=== PATIENT | male | born 1995 | race Caucasian/White ===

== ENCOUNTER 2017-12-17 16:10 | Emergency (ER) | payer SELFPAY ==
--- NOTE | 2017-12-17 16:15 | ED Physician Documentation ---
General Adult - HISTORIAN Historian: patient - HPI Stated Complaint: near syncope Chief Complaint: General Adult Onset: minutes Timing: still present Severity: moderate Further Comments: yes (Pt is a 22 yo male who appeared to nearly pass out at his job at [employer]. Pt has had sinus congestion/pain for several days. Pt had sustained a small cut to his finger prior to this episode. Co-workers reported to EMT's that pt has appeared anxious to them in the past. Pt had mild nausea.) - ROS CONST: other (lightheadedness) EYES/ENT: nasal drainage, nasal congestion, other (sinus pressure) CVS/RESP: cough GI/: nausea MS/SKIN/LYMPH: none NEURO/PSYCH: dizziness - PAST HX Past History: none Allergies/Adverse Reactions: Allergies Allergy/AdvReac Type Severity Reaction Status Date / Time Sulfa (Sulfonamide Allergy Verified 12/17/17 17:01 Antibiotics) Home Medications: Ambulatory Orders Medication Instructions Recorded Amoxicillin [Trimox] 500 mg PO TID #30 capsule 12/17/17 - SOCIAL HX Smoking History: cigarettes - FAMILY HX Family History: No - REVIEWED ASSESSMENTS Nursing Assessment Reviewed: Yes Vitals Reviewed: Yes Progress - Progress Progress: 1 L IVF in ER. Zofran 4 mg IV Rx Amoxicillin 500 mg. Take one tablet by mouth every 8 hrs for 10 days. ED Results Lab/Radiology - Orders Orders: ED Orders Category Date Time Status Place IV Lock 1T Care 12/17/17 16:11 Active CBC/PLATELET/DIFF Routine Lab 12/17/17 Ordered CMP Routine Lab 12/17/17 Ordered Rapid Strep [GRP A STREP SCREEN] Stat Lab 12/17/17 Ordered 0.9 % Sodium Chloride [Normal Saline] 1,000 ml Med 12/17/17 16:12 Active IV Q1H Ondansetron HCl/Pf [Zofran 4 mg/2 ml] Med 12/17/17 16:12 Discontinued 4 mg IVP NOW ONE General Adult Physical Exam - PHYSICAL EXAM GENERAL APPEARANCE: mild distress (anxiety) EENT: pharynx normal, TM's nml, other (sinus tenderness) NECK: normal inspection, supple RESPIRATORY: no resp distress, chest non-tender, breath sounds normal, other ( cough) CVS: reg rate & rhythm, heart sounds normal, no murmur ABDOMEN: soft, no organomegaly, normal bowel sounds BACK: normal inspection, no CVA tenderness SKIN: warm/dry, normal color EXTREMITIES: non-tender, normal range of motion, no evidence of injury NEURO: oriented X3, motor nml, sensation nml, other (anxious) Discharge Clincal Impression: Sinusitis Qualifiers: Sinusitis location: unspecified location Chronicity: unspecified Qualified Code (s): J32.9 - Chronic sinusitis, unspecified Prescriptions: Amoxicillin [Trimox] 500 mg PO TID #30 capsule Referrals: Primary Doctor,No [Primary Care Provider] - Condition: Good Disposition: 01 HOME, SELF-CARE Decision to Admit: NO Decision Time: 17:49
[2017-12-17 16:43] LABS: MEAN CORPUSCULAR HEMOGLOBIN 31.6 pg (28.0-34.0); MEAN CORPUSCULAR VOLUME 91.1 fl (80.0-100.0)
[2017-12-17 16:56] LABS: eGFR (African) > 60; eGFR (Non-African) > 60
[2017-12-17] MEDS: ONDANSETRON HCL/PF 4 MG/ 2ML VIAL IVP ONE (16:59)
[2017-12-17] MEDS: 0.9 % SODIUM CHLORIDE 1,000 ML IV ONE (16:59)
[2017-12-17 17:12] LABS: SEGMENTED NEUTROPHILS % 87 % (39-79)
[2017-12-17 17:13] LABS: EOSINOPHILS % 1 % (0-7); MONOCYTES % 5 % (0-11)
[2017-12-17 18:03] VITALS: BP 119/68
== END 2017-12-17 18:00 | disposition home or self-care (01) ==
LOC: ED 16:10
DX: J32.9 Chronic sinusitis, unspecified (principal)
CPT/HCPCS: 80053; 85025; 87880; 96365; 99283; J2405; J7030; S1016

== ENCOUNTER 2018-01-20 19:41 | Emergency (ER) | payer SELFPAY ==
--- NOTE | 2018-01-20 20:04 | ED Physician Documentation ---
General Adult - HISTORIAN Historian: patient - HPI Stated Complaint: Dizzy, syncopal episode Chief Complaint: General Adult Onset: hours Timing: better Severity: moderate Further Comments: yes (Pt is a 22 yo male with a near-syncopal episode earlier tonight. Pt has been having these episodes intermittently and has been seen here in the past with a similar presentation. Pt says that he sometimes deliberately gets up slowly so that he won't get dizzy. He says he can feel an episode coming on. Pt sometimes gets blurry vision with these episodes. Pt says that he may have briefly had a fast heart rate.) - ROS CONST: other (lightheaded) EYES/ENT: none CVS/RESP: none GI/: none MS/SKIN/LYMPH: none NEURO/PSYCH: dizziness - PAST HX Past History: none Allergies/Adverse Reactions: Allergies Allergy/AdvReac Type Severity Reaction Status Date / Time Sulfa (Sulfonamide Allergy Mild Rash Verified 01/20/18 19:51 Antibiotics) Home Medications: Ambulatory Orders Medication Instructions Recorded Ascorbic Acid [Vitamin C] 500 mg PO DAILY 01/20/18 Ibuprofen [Advil] 200 mg PO Q6H PRN 01/20/18 Multivitamin [Daily Multiple 1 each PO DAILY 01/20/18 Vitamin] - SOCIAL HX Smoking History: cigarettes Drug Use: marijuana - FAMILY HX Family History: Yes (Mother with hx hypoglycemia in youth, now with DM.) - VITAL SIGNS Vital Signs: Vital Signs Temp Pulse Resp BP Pulse Ox 97.4 F L 86 18 111/66 98 01/20/18 19:41 01/20/18 19:41 01/20/18 19:41 01/20/18 19:41 01/20/18 19:41 - REVIEWED ASSESSMENTS Nursing Assessment Reviewed: Yes Vitals Reviewed: Yes Progress - Progress Progress: NS 1 L IVF Glucose = 67 Pt given orange juice in ER, will eat at home. Pt with family hx hypoglycemia and with intermittent episodes of lightheadedness /blurry vision, may have hypoglycemia. Pt advised to establish with local doctor for further testing to establish formal hypoglycemia diagnosis. Pt advised to eat small frequent meals and given handout on hypoglycemia. General Adult Physical Exam - PHYSICAL EXAM GENERAL APPEARANCE: mild distress EENT: eye inspection normal, pharynx normal NECK: normal inspection, supple RESPIRATORY: no resp distress, chest non-tender, breath sounds normal CVS: reg rate & rhythm, heart sounds normal, equal pulses ABDOMEN: soft, no organomegaly, normal bowel sounds BACK: normal inspection, no CVA tenderness SKIN: warm/dry, normal color EXTREMITIES: non-tender, normal range of motion, no evidence of injury NEURO: oriented X3, CN's nml as tested, motor nml, sensation nml Discharge Clincal Impression: Near syncope, Possible hypoglycemia Referrals: Primary Doctor,No [Primary Care Provider] - Condition: Stable Disposition: 01 HOME, SELF-CARE Decision to Admit: NO Decision Time: 21:54
[2018-01-20 20:42] LABS: BASOPHILS % 0.6 (0.0-1.5); EOSINOPHILS % 6.5 % (0.0-6.8); MEAN CORPUSCULAR HEMOGLOBIN 32.1 pg (28.0-34.0); MEAN CORPUSCULAR VOLUME 91.4 fl (80.0-100.0); NEUTROPHILS # 2.9 # k/uL (1.4-7.7)
[2018-01-20] MEDS: 0.9 % SODIUM CHLORIDE 1,000 ML IV ONE (21:02)
[2018-01-20 21:24] LABS: eGFR (African) > 60; eGFR (Non-African) > 60
[2018-01-20 22:12] VITALS: BP 112/74
== END 2018-01-20 22:10 | disposition home or self-care (01) ==
LOC: ED 19:41
DX: R55 Syncope and collapse (principal)
CPT/HCPCS: 80053; 85025; 93005; 96365; 99283; J7030; S1016

== ENCOUNTER 2019-01-25 21:58 | Observation (INO) | payer SELFPAY ==
--- NOTE | 2019-01-25 22:15 | ED Physician Documentation ---
General Adult - HISTORIAN Historian: patient - HPI Stated Complaint: cough, high fever Chief Complaint: General Adult Onset: days ago (7) Timing: still present Severity: moderate Further Comments: yes (Pt is a 23 yo male with fever and cough at home. Pt coughed a small amount of blood at work. He had been coughing vigorously prior to this. Pt has been ill for about a week.) - ROS CONST: sweating, weakness, chills EYES/ENT: sore throat CVS/RESP: shortness of breath, cough GI/: none MS/SKIN/LYMPH: none - PAST HX Past History: none Allergies/Adverse Reactions: Allergies Allergy/AdvReac Type Severity Reaction Status Date / Time Sulfa (Sulfonamide Allergy Mild Rash Verified 01/25/19 22:46 Antibiotics) Home Medications: Ambulatory Orders Medication Instructions Recorded NK 01/25/19 - SOCIAL HX Smoking History: cigarettes - FAMILY HX Family History: No - VITAL SIGNS Vital Signs: Vital Signs Temp Pulse Resp BP Pulse Ox 112/74 01/20/18 22:10 - REVIEWED ASSESSMENTS Nursing Assessment Reviewed: Yes Vitals Reviewed: Yes Progress - Progress Progress: Influenza A & B - neg Rapid Strep - pos Toradol 30 mg IV Keflex 500 mg po CXR: History: Cough, fever, left chest pain Findings: Basal left lower lobe pneumonia is present without parapneumonic effusion. The right lung is clear. Heart size and pulmonary vascularity are normal. Impression: Basal left lower lobe pneumonia. NS 1.5 L IVF, then 100 ml/hr Zofran 4 mg IV Rocephin 1 gm IV Admit to Dr. Mercado General Adult Physical Exam - PHYSICAL EXAM GENERAL APPEARANCE: moderate distress EENT: pharyngeal erythema NECK: normal inspection, supple RESPIRATORY: other (coarse breath sounds) CVS: tachycardia ABDOMEN: soft, no organomegaly, normal bowel sounds BACK: normal inspection, no CVA tenderness SKIN: warm/dry, pallor EXTREMITIES: non-tender, normal range of motion, no evidence of injury, no edema NEURO: oriented X3, motor nml, sensation nml Discharge Clincal Impression: Strep throat Pneumonia Qualifiers: Pneumonia type: due to unspecified organism Laterality: left Lung location: lower lobe of lung Qualified Code(s): J18.1 - Lobar pneumonia, unspecified organism Referrals: Primary Doctor,No [Primary Care Provider] - Condition: Stable Disposition: ADMITTED INPATIENT Decision to Admit: NO Decision Time: 01:05
[2019-01-25] MEDS ORDERED: 0.9 % SODIUM CHLORIDE 1,000 ML IV ONE (22:16)
[2019-01-25] MEDS ORDERED: KETOROLAC TROMETHAMINE 30 MG/1ML VIAL IV ONE (22:16)
[2019-01-25 22:56] LABS: BASOPHILS % 0.5 (0.0-1.5); EOSINOPHILS % 1.3 % (0.0-6.8); MEAN CORPUSCULAR HEMOGLOBIN 30.8 pg (28.0-34.0); MONOCYTES % 3.7 % (0.0-11.0)
[2019-01-25] MEDS ORDERED: CEPHALEXIN 250 MG CAPSULE PO ONE (23:17)
[2019-01-26] MEDS ORDERED: cefTRIAXone SODIUM 1 GM/50 ML INJ IV ONE (00:15)
[2019-01-26] MEDS ORDERED: 0.9 % SODIUM CHLORIDE(MINIBAG+ 50 ML IV ONE (00:23)
[2019-01-26] MEDS ORDERED: cefTRIAXone SODIUM 1 GM INJ ONE (00:24)
[2019-01-26] MEDS ORDERED: ONDANSETRON HCL/PF 4 MG/ 2ML VIAL IVP ONE (00:34)
[2019-01-26] MEDS ORDERED: 0.9 % SODIUM CHLORIDE 1,000 ML IV ONE (00:50)
[2019-01-26] MEDS ORDERED: ACETAMINOPHEN 325 MG TABLET PO PRN (01:13)
[2019-01-26] MEDS ORDERED: AZITHROMYCIN 500 MG in 0.9 % SODIUM CHLORIDE 250 ML IV SCH (01:37)
[2019-01-26] MEDS ORDERED: 0.9 % SODIUM CHLORIDE 1,000 ML IV SCH (01:37)
[2019-01-26] MEDS ORDERED: AZITHROMYCIN 500 MG VIAL IV ONE (01:42)
[2019-01-26] MEDS ORDERED: 0.9 % SODIUM CHLORIDE 250 ML IV ONE (01:42)
[2019-01-26 02:18] VITALS: BMI 30.4
[2019-01-26 06:16] LABS: BASOPHILS % 0.8 (0.0-1.5); EOSINOPHILS % 0.9 % (0.0-6.8); MONOCYTES % 7.5 % (0.0-11.0)
[2019-01-26 06:17] LABS: NEUTROPHILS # 12.7 # k/uL (1.4-7.7)
--- NOTE | 2019-01-26 06:37 | Diagnostic Imaging Report ---
TOBY RAMIREZ [facility] [address] [facility] [address] [address] Report Submission Date: Jan 25, 2019 11:30:30 PM [facility] Patient Study Name: RAFAEL CLARK Date: Jan 25, 2019 10:45:00 PM [facility] Modality Type: DX Gender: M Description: CHEST 2VIEW : 89 Institution: [facility] Physician: TOBY RAMIREZ Chest two views History: Cough, fever, left chest pain Findings: Basal left lower lobe pneumonia is present without parapneumonic effusion. The right lung is clear. Heart size and pulmonary vascularity are normal. Impression: Basal left lower lobe pneumonia. Electronically signed on Jan 25, 2019 11:30:30 PM [employer]ATION HAND by: Damon ROSA
--- NOTE | 2019-01-26 07:58 | History and Physical Report ---
History of Present Illnes - History of Present Illness Reason for Visit: Cough History of Present Illness: Patient reports he started feeling bad last week with mild cough. Yesterday he went to work and felt fine but within an hour he had a fever, chills, worse cough, ST, and body aches. In the ER he was diagnosed with strep and LLL pneumonia. Admitted per ER physician. - Past Surgical History Past Surgical History: Other (PE tubes) - Past Family History Father Family History: Other (MRSA) - Past Social History Smoke: No Alcohol: None Drugs: None Lives: Alone - Health Maintenance Health Maintenance: denies: Cholesterol Influenza Vaccine: No Pneumonia Vaccine: No Resuscitation Status: Resusciation Status Resuscitation Status Full Code Review of Systems - Review of Systems Constitutional: Fever, Chills, Sweats, Weakness Eyes: negative: pain ENT: Throat Pain. negative: Ear Pain Respiratory: Cough. negative: Shortness of Breath Cardiovascular: negative: Chest Pain Gastrointestinal: Nausea. negative: Vomiting, Abdominal Pain Genitourinary: negative: Dysuria Musculoskeletal: Other ("hurt all over") Skin: negative: Rash Neurological: Weakness - Medications/Allergies Allergies/Adverse Reactions: Allergies Allergy/AdvReac Type Severity Reaction Status Date / Time Sulfa (Sulfonamide Allergy Mild Rash Verified 01/25/19 22:46 Antibiotics) Home Medications: Home Medications NK 01/25/19 Current Inpatient Medications: Current Inpatient Medications Acetaminophen (Tylenol) 650 mg PO Q6 PRN PRN Reason: Fever >101 Stop: 02/01/19 23:59 Last Admin: 01/26/19 05:57 Dose: 650 mg Ceftriaxone Sodium (Rocephin) 1 gm IV DAILY [facility] Stop: 02/01/19 23:59 Azithromycin 500 mg/ Sodium (Chloride) 250 mls @ 125 mls/hr IV Q24H [facility] Stop: 02/05/19 01:36 Last Admin: 01/26/19 01:49 Dose: 125 mls/hr Sodium Chloride (Normal Saline) 1,000 mls @ 100 mls/hr IV Q10H [facility] Last Admin: 01/26/19 03:58 Dose: 100 mls/hr Oseltamivir Phosphate (Tamiflu) 75 mg PO BID [facility] Exam - Exam Vital Signs: Vital Signs (72 hours) 01/25/19 01/26/19 01/26/19 21:58 01:24 01:43 Temperature 99.9 F H 98.2 F 98.2 F Pulse Rate [ 131 H 115 H 115 H Pulse ox] Respiratory 22 20 20 Rate Blood Pressure 122/68 122/68 [Left Arm] Blood Pressure 137/64 [Right Arm] O2 Sat by Pulse 94 99 99 Oximetry 01/26/19 01/26/19 05:49 05:58 Temperature 100.8 F H Pulse Rate [ 96 H Pulse ox] Respiratory 16 16 Rate Blood Pressure 106/47 [Left Arm] Blood Pressure [Right Arm] O2 Sat by Pulse 96 Oximetry General: Alert, Oriented to Person, Oriented to Place, Oriented to Time, Cooperative, No acute distress HEENT: Atraumatic, PERRLA, EOMI, Mouth Mucous membr. moist/[place], Nose Mucous membr. moist/[place] Neck: Normal Range of Motion Lungs: Rhonchi Cardiovascular: Regular rate Abdomen: Normal bowel sounds, Soft, No tenderness Integumentary: Normal Extremities: No edema Neurological: Normal gait, Normal speech, Strength Equal Bilat, Normal tone, Sensation intact, Cranial nerves 3-12 NL, Reflexes 2+ Psych/Mental Status: Mental status NL, Mood NL, Appropriate Affect, Intact Judgment - Laboratory Results Laboratory Results: Laboratory Results 01/25/19 01/26/19 22:20 06:00 WBC 10.60 15.70 H RBC 4.99 4.47 Hgb 15.4 13.9 Hct 46.5 41.4 MCV 93.0 93.0 MCH 30.8 31.0 MCHC 33.0 33.5 RDW 13.4 14.0 Plt Count 342 302 Neut % (Auto) 84.8 H 81.4 H Lymph % (Auto) 9.7 L 9.4 L [place] % (Auto) 3.7 7.5 Eos % (Auto) 1.3 0.9 Baso % (Auto) 0.5 0.8 Neut # (Auto) 9.0 H 12.7 H Lymph # (Auto) 1.0 1.5 [place] # (Auto) 0.4 1.2 H Eos # (Auto) 0.1 0.1 Baso # (Auto) 0.1 0.1 Assessment/Plan - Assessment/Plan (1) Influenza-like illness Status: Acute Current Visit: Yes Plan: Suspect patient has influenza despite flu test negative. Will start tamiflu. Droplet precautions. (2) Pneumonia Status: Acute Current Visit: Yes Qualifiers: Pneumonia type: due to unspecified organism Laterality: left Lung location: lower lobe of lung Qualified Code(s): J18.1 - Lobar pneumonia, unspecified organism Plan: Patient started on rocephin and zithromax by ER staff. Watch. I suspect we can send him home later today if he remains off O2 and afebrile. (3) Strep throat Status: Acute Current Visit: Yes Plan: Being treated. VTE Assessment - RISK FACTOR SCORE VTE RISK FACTOR SCORES: ACUTE INFECTION OTHER THEN SEPSIS - RISK VTE LOW RISK: SCORE OF 1 OR LESS (RISK PROXIMAL DVT 0.4%) NO PROPHYLAXIS NEEDED
[2019-01-26] MEDS: OSELTAMIVIR PHOSPHATE 75 MG CAPSULE PO SCH ×2 (08:00→18:46)
[2019-01-26] MEDS ORDERED: cefTRIAXone SODIUM 1 GM/50 ML INJ IV SCH (09:00)
[2019-01-26 11:50] LABS: eGFR (Non-African) > 60
--- NOTE | 2019-01-26 16:50 | Discharge Summary ---
Discharge Summary - Discharge Sumary History of Present Illness: Patient reports he started feeling bad last week with mild cough. Yesterday he went to work and felt fine but within an hour he had a fever, chills, worse cough, ST, and body aches. In the ER he was diagnosed with strep and LLL pneumonia. Admitted per ER physician. Condition at Discharge: Stable Home Medications: Ambulatory Orders Medication Instructions Recorded Levofloxacin [Levaquin] 500 mg PO DAILY #9 tablet 01/26/19 Oseltamivir Phosphate [Tamiflu] 75 mg PO BID #10 capsule 01/26/19 Consultations this Visit: None Allergies/Adverse Reactions: Allergies Allergy/AdvReac Type Severity Reaction Status Date / Time Sulfa (Sulfonamide Allergy Mild Rash Verified 01/25/19 22:46 Antibiotics) Patient Problems: Current Active Problems Problem Status Onset Influenza-like illness Acute Pneumonia Acute Strep throat Acute Discharge Summary: Patient did well during his stay. He remained afebrile and had no O2 requirement. Received IVF all day. [place] much better by evening and was able to tolerate food. Discharged home in stable condition. Hospital Course: Discharge Dx - Pneumonia. STrep throat. Influenza like illness. Dispositio - home
[2019-01-26 18:12] VITALS: BP 112/73
== END 2019-01-26 19:18 | disposition home or self-care (01) ==
LOC: ED 21:58 → INTOOBSV 01-26 01:15 → SOUTH 01-26 01:15
PROVIDERS: ADMIT Family Medicine; ATTEND Family Medicine
DX: J18.1 Lobar pneumonia, unspecified organism (principal); J11.1 Influenza due to unidentified influenza virus with other respiratory manifestations
CPT/HCPCS: 71046; 80053; 85025; 87040; 87400; 87880; 96374; 96375; 99283; G0378; J0456; J0696; J1885; J2405; J7030; J7050; 99234; S1016

== ENCOUNTER 2019-07-26 17:26 | Emergency (ER) | payer SELFPAY ==
--- NOTE | 2019-07-26 17:54 | ED Physician Documentation ---
Sore Throat/Dental Pain - HISTORIAN Historian: patient - HPI Stated Complaint: sore throat, RUIZ Chief Complaint: Sore Throat Additional Information: Patient is a 23 year old male who presents to the ER with c/o headache and sore throat that started 3 days ago; has not taken anything for his symptoms. Denies any fever or chills. Onset: days ago Context: Possible Infection Associated Symptoms: sore throat. denies: fever, chills - ROS CONST: no problems CVS/RESP: none GI/: nausea. denies: vomiting MS/SKIN/LYMPH: denies: muscle aches NEURO/PSYCH: headache - PAST HX Past History: none Other History: none Immunizations: UTD Allergies/Adverse Reactions: Allergies Allergy/AdvReac Type Severity Reaction Status Date / Time Sulfa (Sulfonamide Allergy Mild Rash Verified 01/25/19 22:46 Antibiotics) Home Medications: Ambulatory Orders Medication Instructions Recorded Ondansetron HCl Rapdis [Zofran Odt] 4 mg PO Q8 PRN #8 tab 07/26/19 - SOCIAL HX Smoking History: greater than 1 pack/day Alcohol Use: occasionally Drug Use: marijuana - FAMILY HX Family History: Yes - VITAL SIGNS Vital Signs: Vital Signs Temp Pulse Resp BP Pulse Ox 98.0 F 87 18 122/71 98 07/26/19 17:26 07/26/19 17:26 07/26/19 17:26 07/26/19 17:26 07/26/19 17:26 - REVIEWED ASSESSMENTS Nursing Assessment Reviewed: Yes ED Results Lab/Radiology - Orders Orders: ED Orders Category Date Time Status Rapid Strep [GRP A STREP SCREEN] Stat Lab 07/26/19 Ordered Sore throat Physical Exam - EXAM General Appearance: no acute distress, alert Head/Neck: head nml inspection, trachea midline, no lymphadenopathy, neck nml inspection Eyes: eyes nml inspection, PERRL Mouth/Throat: lips nml, gums nml, pharynx nml, voice nml, pharyngeal erythema Ear/Nose: nml inspection Respiratory: breath sounds nml CVS: heart sounds nml Abdomen: normal bowel sounds Extremities: non-tender Skin: warm/dry, normal color Neuro/Psych: oriented x3, mood/affect nml Discharge Clincal Impression: Sore throat (viral) Referrals: Primary Doctor,No [Primary Care Provider] - 2 Days Additional Instructions: Increase fluid intake (especially water) Hot tea with 1 tsp of honey will help thin secretions Warm salt water gargles 4 times a day Alternate Tylenol and Ibuprofen for 24 hours Start taking Zyrtec daily Follow up with PCP in one week for re-evaluation Condition: Good Disposition: 01 HOME, SELF-CARE Decision to Admit: NO Decision Time: 18:06
[2019-07-26 18:12] VITALS: BP 122/71
== END 2019-07-26 18:00 | disposition home or self-care (01) ==
LOC: ED 17:26
DX: J02.9 Acute pharyngitis, unspecified (principal); F17.210 Nicotine dependence, cigarettes, uncomplicated
CPT/HCPCS: 87070; 87880; 99281; 99282